=== PATIENT | female | born 1985 | race Caucasian/White ===

== ENCOUNTER 2019-10-20 13:55 | Emergency (ER) | payer OTHER ==
[~2019-10-20] VITALS: Ht 170.2 cm; Wt 72.6 kg
[~2019-10-20 13:55] MED LIST: FLEXERIL PO; NITROFURANTOIN100 MG PO; PRILOSEC10 MG PO; ZYRTEC10 MG
[2019-10-20] MEDS ORDERED: PROTONIX 20 MG20 MG PO (14:12)
[2019-10-20] MEDS ORDERED: SINGULAIR 10 MG10 M1 PO (14:13)
[2019-10-20] MEDS ORDERED: HUMIRA CRO40 MG/0.8 IM (14:13)
[2019-10-20] MEDS ORDERED: ELDERBERRY-VIT1 EACH PO (14:14)
[2019-10-20] MEDS ORDERED: XYZAL5 MG PO (14:14)
[2019-10-20] MEDS ORDERED: GARLIC1 EACH PO (14:14)
[2019-10-20] MEDS ORDERED: FLONASE 0.05%50 MCG NARES (14:14)
[2019-10-20] MEDS ORDERED: ZYRTEC10 M5 PO (14:14)
[2019-10-20] MEDS ORDERED: MAGNESIUM30 MG PO (14:14)
[2019-10-20] MEDS ORDERED: OMEPRAZOLE40 MG PO (14:15)
[2019-10-20 14:26] LABS: ABSOLUTE BASOPHILS 0.1 thou/uL (0.0-0.2); ABSOLUTE EOSINOPHILS 0.2 thou/uL (0.0-0.7); ABSOLUTE LYMPHOCYTES 3.5 thou/uL (0.8-5.3); ABSOLUTE MONOCYTES 0.6 thou/uL (0.0-1.2); ABSOLUTE NEUTROPHILS 3.6 thou/uL (1.6-8.1); BASOPHILS 1.3 %; EOSINOPHILS 2.1 %; HEMATOCRIT 44.7 % (37.0-47.0); HEMOGLOBIN 15.5 gm/dL (12.0-15.0); LYMPHOCYTES 43.6 %; MCH 30.2 pg (26.0-34.0); MCHC 34.7 g/dL (28.0-37.0); MONOCYTES 7.9 %; MPV 9.6 fl. (7.2-11.1); NUCLEATED RBCS 0 /100WBC; PLATELET COUNT* 225 thou/uL (150-400); POLYS 45.1 %; RBC 5.13 mil/uL (4.20-5.00); RDW-CV 13.1 % (10.5-14.5)
[2019-10-20 14:35] LABS: CALCIUM 8.7 mg/dL (8.5-10.1); CREATININE 0.9 mg/dL (0.6-1.3); POTASSIUM 3.7 mmol/L (3.5-5.1)
[2019-10-20 14:36] LABS: APTT 33.9 Seconds (25.0-31.3)
[2019-10-20 14:40] LABS: TOTAL BILIRUBIN 0.3 mg/dL (<0.1-1.0); TOTAL PROTEIN 8.4 g/dL (6.4-8.2)
[2019-10-20 14:40] LABS: URINE BILIRUBIN NEGATIVE (Negative); URINE BLOOD TRACE (Negative); URINE COLOR YELLOW; URINE GLUCOSE-RANDOM NEGATIVE (Negative); URINE KETONES NEGATIVE (Negative); URINE LEUKOCYTES-REFLEX 1+ (Negative); URINE NITRITE-REFLEX NEGATIVE (Negative); URINE PROTEIN NEGATIVE (Negative); URINE SPECIFIC GRAVITY <= 1.005 (1.005-1.030); URINE UROBILINOGEN 0.2 E.U./dl (0.2-1.0)
[2019-10-20 14:41] LABS: URINE CLARITY HAZY
[2019-10-20 14:51] LABS: SQUAMOUS >10 Many /LPF (0-3)
[2019-10-20 14:52] LABS: BACTERIA-REFLEX 1-9 Few /HPF (None Seen); CASTS None Seen /LPF (None Seen); CRYSTALS None Seen /LPF (None Seen); URINE RBC 0-2 Rare /HPF (0-2); URINE WBC-REFLEX 0-5 Rare /HPF (0-5)
[2019-10-20 15:03] VITALS: BP 157/111
== END 2019-10-20 15:03 | disposition home or self-care (01) ==
LOC: M.ERS 13:55
PROVIDERS: Physician Assistant
DX: S90.465A Insect bite (nonvenomous), left lesser toe(s), initial encounter (principal); R52 Pain, unspecified; K21.9 Gastro-esophageal reflux disease without esophagitis; G43.909 Migraine, unspecified, not intractable, without status migrainosus; K50.90 Crohn's disease, unspecified, without complications; Z88.1 Allergy status to other antibiotic agents; Z88.2 Allergy status to sulfonamides; Z88.8 Allergy status to other drugs, medicaments and biological substances; Z86.14 Personal history of Methicillin resistant Staphylococcus aureus infection; W57.XXXA Bitten or stung by nonvenomous insect and other nonvenomous arthropods, initial encounter; Y93.89 Activity, other specified; Y92.89 Other specified places as the place of occurrence of the external cause; Y99.8 Other external cause status

== ENCOUNTER 2020-02-26 13:09 | Emergency (ER) | payer OTHER ==
[~2020-02-26] VITALS: Ht 170.2 cm; Wt 70.3 kg
[~2020-02-26 13:09] MED LIST changes: +ELDERBERRY-VIT1 EACH PO; +FLONASE 0.05%50 MCG NARES; +GARLIC1 EACH PO; +HUMIRA CRO40 MG/0.8 IM; +MAGNESIUM30 MG PO; +OMEPRAZOLE40 MG PO; +PROTONIX 20 MG20 MG PO; +SINGULAIR 10 MG10 M1 PO; +XYZAL5 MG PO; +ZYRTEC10 M5 PO
[2020-02-26] MEDS ORDERED: PREDNISONE 20 M20 MG PO (13:47)
[2020-02-26] MEDS ORDERED: VENTOLIN HFA 1818 GM INH (13:47)
[2020-02-26 15:19] VITALS: BP 140/88
--- NOTE | 2020-02-26 16:19 | EKG ---
[place] [address] ELECTROCARDIOGRAM REPORT Name: JAMES CUMMINGS Room: 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
== END 2020-02-26 15:20 | disposition home or self-care (01) ==
LOC: M.ERS 13:09
DX: U07.1 COVID-19 (principal); R06.00 Dyspnea, unspecified; K21.9 Gastro-esophageal reflux disease without esophagitis; G43.909 Migraine, unspecified, not intractable, without status migrainosus; Z79.899 Other long term (current) drug therapy; Z88.1 Allergy status to other antibiotic agents; Z88.2 Allergy status to sulfonamides; Z88.8 Allergy status to other drugs, medicaments and biological substances